=== PATIENT | female | born 1990 | race Caucasian/White ===

== ENCOUNTER → 2017-03-04 22:06 | Observation (INO) ==
--- NOTE | 2017-03-05 09:09 | Discharge Summary ---
Date of Encounter: 03/04/17 Time of Encounter: 21:58 - Discharge Diagnosis (1) 26 weeks gestation of Priority: Primary Status: Acute Comments: Patient admitted for observation for decreased movement. However, after being in labor and delivery patient felt multiple movements and FHR was appropriate for gestational age. Patient discharged home to follow up with PCP as scheduled. - Discharge Medications Home Medications: Daily Combo Pack 1 tab PO DAILY 03/04/17 [History] Sertraline [Zoloft] 1 tab PO DAILY 03/04/17 [History] Allergies/Adverse Reactions: Allergies No Known Allergies Allergy (Verified 03/04/17 21:09) Date of admission: 03/04/17 20:46 Discharging clinician: Rosita Bernstein Anticipated date of discharge: 03/04/17 - Patient Status Disposition: Home, Self-Care Condition: Good - Discharge Instructions Additional Instructions: LABOR AND DELIVERY DISCHARGE INSTRUCTIONS Signs and Symptoms to be Reported to your Doctor Immediately: * Sudden gush, continuous or intermittent lead of fluid from vagina (note the time of gush and color of fluid) * Onset of bright red vaginal bleeding with or without pain (if you had a vaginal exam during this visit you may notice some dark red spotting. This is normal.) * Lower abdominal cramping or backache that is premenstrual-like feeling. * More than 6 contractions in one hour. * Burning during urination, having to urinate more frequently or pain in your mid-back. * A change in the baby's activity. This could be an increase or decrease in activity. * Severe headache which does not go away with tylenol. * Sudden swelling in the face, hands, arms and/or legs. * Upper abdominal pain - sometimes associated with heartburn or nausea and is not relieved by Maalox, Mylanta or Tums. * Dizziness or blurred vision or visual disturbances (seeing stars/lights). * Kick Counts One hour after a meal, lay down on one side in a quiet place. Count the number of ashley the baby moves during an hour. If less than 6 movements, notify your physician. Diet: *Force fluids - 8-10 tall glasses of fluid per day. May include popsicles and jello. 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 FHR appropriate for gestational age. - VTE Reasons for not Prescribing Prophylaxis: Treatment not Indicated - Low risk for VTE
== END | disposition home or self-care (01) ==
LOC: 1NENULAB
PROVIDERS: ADMIT Obstetrics & Gynecology; ATTEND Obstetrics & Gynecology

== ENCOUNTER 2017-06-08 06:00 | Inpatient (IN) ==
[2017-06-08] MEDS ORDERED: Famotidine 20 MG/2 ML VIAL IVP PRN (07:26)
[2017-06-08] MEDS ORDERED: Naloxone 0.4 MG/ML INJ IVP PRN (07:26)
[2017-06-08] MEDS ORDERED: Ondansetron 4 MG/2 ML VIAL IVP PRN (07:26)
[2017-06-08] MEDS ORDERED: miSOPROStol 100 MCG TABLET PO STA (07:27)
--- NOTE | 2017-06-08 09:16 | OB/GYN History & Physical ---
Date of Encounter: 06/08/17 Time of Encounter: 09:10 Assessment and Plan (1) 39 weeks gestation of Current visit: Yes Status: Acute admit for IOL Cytotec 50 mcg PO (2) Obesity affecting in third trimester Current visit: Yes Status: Acute Induction of labor between 39-40 weeks gestation (3) Rh negative status during Current visit: Yes Status: Acute Rhogam evaluation following delivery Qualifiers: Trimester: third trimester Qualified Code(s): O09.893 - Supervision of other high risk pregnancies, third trimester History of Present Illness Chief complaint: Patient here for scheduled Induction of labor at 39w5d. HPI: Ms. Tenorio is a 26 year old female at 39w5d presents to labor and delivery for scheduled induction of labor. Patient reports +FM, denies LOF or VB. On 02/2017 patient had an ultrasound: anterior placenta, JASON 13.2, EFW 8#5oz 94% tile. was complicated by obesity. Blood type: O Negative, Rubella: Immune, Hep B: nonreactive, GBS: negative. Past Med Surg Social Fam HX - Past Medical History Source: patient Medical history: no medical history Psychiatric history: depression - Past Surgical History Surgical History: no surgical history - Social History Smoking Status: Never smoker Smokeless Tobacco Status: No Alcohol use: none Drug use: none Occupational status: employed Current living situation: Home - Independent Activity Level: Independent ambulation Recent Out of Country Travel Within the Last 8 Weeks: No Exposure or Possible Exposure to Illness During Travel: No - Family History Mother Family Member Ethnicity: Non- Living Status: Still Living Obstetrical History - Pregnancies : 3 Para: 0 Term: 0 : 0 Ab's: 2 Livin Medications and Allergies Daily Combo Pack 1 tab PO DAILY 03/04/17 [History] Sertraline [Zoloft] 1 tab PO DAILY 03/04/17 [History] 3 Allergy/AdvReac Type Severity Reaction Status Date / Time No Known Allergies Allergy Verified 03/04/17 21:09 Review of System OB - Constitutional Constitutional ROS IM: no chills, no fever(s), no headache(s) - Cardiovascular Cardiovascular: no chest pain, no edema, no lightheadedness, no palpitations, no rapid heart rate, no syncope - Respiratory Respiratory: no cough, no dyspnea - Gastrointestinal Gastrointestinal: no abdominal pain, no constipation, no cramping, no diarrhea, no heartburn, no nausea, no vomiting - Genitourinary Genitourinary: no abnormal vaginal bleeding, no dysuria, no flank pain, no urinary frequency, no urinary incontinence, no urinary urgency, no vaginal discharge, no vaginal odor, no vaginal pruritis Exam - Constitutional Constitutional: well developed, well nourished, no acute distress, obese - HEENT HEENT: Normocephaly, Mucus Membranes Moist - Neck Neck exam: full ROM, supple - Lungs Respiratory exam: CTAB - Cardiovascular Cardiovascular exam: RRR, +S1, +S2 - Abdomen Abdomen: Present: bowel sounds normal, gravid, non tender - Extremities Extremities exam: full ROM, normal capillary refill, normal inspection Deep Tendon Reflex Grade: 2+ Normal - Cervix Dilation: 2 Effacement: 80 Station: -1 - Uterus Uterus exam: Present: normal size, normal contour - Anus/Rectum Anus/Rectum: Present: normal perianal skin - Comments Comments: FHR 120 bpm moderate variability +15x15 accels no decels noted. Contractions irregular. CAt. 1 tracing. Results All other labs normal. - VTE Reasons for not Prescribing Prophylaxis: Treatment not Indicated - Low risk for VTE
[2017-06-08 09:56] LABS: Basophils % 0.3 %; Eosinophils # 0.2 K/mcL (0.0-0.6); Eosinophils % 2.5 %; Hematocrit 32.4 % (35.3-44.9); Hemoglobin 10.4 g/dL (11.5-15.4); Immature Granulocytes % 0.4 % (0-4); Immature Platelets 7.4 % (1.1-6.1); Lymphocytes # 1.6 K/mcL (0.6-4.6); Lymphocytes % 16.8 %; Mean Corpuscular HGB Conc 32.1 g/dL (31.6-35.5); Mean Corpuscular Hemoglobin 26.8 pg (28.0-33.3); Mean Corpuscular Volume 83.5 fL (83.0-100.0); Mean Platelet Volume 11.3 fL (9.4-12.4); Monocytes # 0.5 K/mcL (0.0-1.3); Monocytes % 5.6 %; Platelet Count 253 K/mcL (140-400); Red Blood Count 3.88 M/mcL (3.82-4.97); Red Cell Distribution Width 15.4 % (11.5-14.5); Segmented Neutrophils % 74.4 %
[2017-06-08 10:02] LABS: Amphetamine Screen,Urine Negative ng/mL (Cutoff=1000); Barbiturate Screen,Urine Negative ng/mL (Cutoff=200); Benzodiazepines Screen,Urine Negative ng/mL (Cutoff=200); Cannabinoid Screen,Urine Negative ng/mL (Cutoff = 50); Cocaine Screen,Urine Negative ng/mL (Cutoff= 300); Opiate Screen,Urine Negative ng/mL (Cutoff=300); Phencyclidine Screen,Urine Negative ng/mL (Cutoff=25)
--- NOTE | 2017-06-08 12:51 | OB Labor Progress Note ---
Date of Encounter: 06/08/17 Time of Encounter: 12:49 Labor Progress Note - Subjective Subjective: Patient resting in bed. Discussed POC with patient. Patient denies any questions or concerns. - Cervix Cervix: 4/90/-1 - Heart Tones Heart Tones: 135 bpm moderate variability +15x15 accels no decels noted. CAt. 1 tracing - [place]: 2-2.5 min apart - Interventions Interventions: SVE, AROM moderate amount of clear fluid noted. Patient tolerated well. - Plan Plan: Continue labor management. Patient may have nubain or epidural if desires.
--- NOTE | 2017-06-08 12:54 | Anesthesia Evaluation PreOp ---
Date of Encounter: 06/08/17 Time of Encounter: 12:52 - Past History Planned Operation: sarah Cardiac History: Denies any Significant Hx Pulmonary History: Denies Any Significant HX COMIC WRITER History: Denies Any Significant HX Other Medical History: GERD (occasionally), Other (depression) Anesthesia History: No Prior Anesthetic Complications : Yes (39 weeks, ) Alcohol Use: none Drug use: none Medications and Allergies Daily Combo Pack 1 tab PO DAILY 03/04/17 [History] Sertraline [Zoloft] 1 tab PO DAILY 03/04/17 [History] 3 Allergy/AdvReac Type Severity Reaction Status Date / Time No Known Allergies Allergy Verified 03/04/17 21:09 - Meds/Allergy Pre-op Review Medications Reviewed: Yes Allergies Reviewed: Yes Beta Blockers on Current Med List: No Anesthesia Results - Labs 06/08/17 09:35 Anesthesia Exam O2 Sat Height 1.57 m Weight 116.2 kg Vital Signs Temp Pulse Resp BP 97.9 F 91 18 112/72 06/08/17 09:24 06/08/17 09:24 06/08/17 09:24 06/08/17 09:24 Height: 62 Weight: 116 - HEENT Pupil (Motor): Pupils equal Mallampati: II Teeth: Normal Oral Opening: Greater than 3 - COMIC WRITER LOC: Oriented COMIC WRITER Motor: Normal RUE, Normal LUE, Normal RLE, Normal LLE, Normal Face COMIC WRITER Sensory: Normal: RUE, LUE, RLE, LLE, Face - Cardiac Rhythm: Regular Murmur: None JVD: No Carotid Bruit: No - Pulmonary Breath Sounds: bilateral Clear Respiratory Effort: Symmetrical Anesthesia Assess/Plan ASA Score: 2 Modified Ruchi Scale for Level of Consciousness: Cooperative, oriented, and tranquil Anesthetic Plan: Regional Autologous Blood: No Monitoring Plan: Standard Monitors
[2017-06-08] MEDS: *HR* Nalbuphine 20 MG/ML AMPUL IVP PRN ×2 (13:54→17:38)
--- NOTE | 2017-06-08 14:58 | OB Labor Progress Note ---
Date of Encounter: 06/08/17 Time of Encounter: 14:56 Labor Progress Note - Subjective Subjective: Patient resting in bed. Discussed POC with patient. Patient denies any questions or concerns. - Cervix Cervix: 5/90/-1 - Heart Tones Heart Tones: 120 bpm moderate amount of variability +15x15 accels no decels noted. Cat. 1 tracing - [place]: 2-4 min apart - Interventions Interventions: IUPC placed without difficulty. Patient tolerated well. - Plan Plan: Continue labor management. Patient may have epidural if desires. Will start pitocin if needed for labor augmentation.
[2017-06-08] MEDS ORDERED: Oxytocin 20 units/ LR 1000 mL 20 UNIT/1,000 ML BAG IVC SCH (15:00)
[2017-06-08] MEDS: Ringers Solution, Lactated 1,000 ML IVC SCH ×2 (17:21→20:46)
[2017-06-08] MEDS ORDERED: *HR* Ropivacaine/PF 0.2% 10 ML AMPUL ONE ×2 (17:58→23:21)
[2017-06-08] MEDS ORDERED: *HR* FentaNYL (PF) 100 MCG/2 ML VIAL ONE (17:58)
[2017-06-08] MEDS ORDERED: Epidural Premix (fent/bupiv) 110 ML EP ONE (17:59)
--- NOTE | 2017-06-08 18:24 | Anesthesia Procedures ---
Date of Encounter: 06/08/17 Time of Encounter: 18:01 Procedures: Anesthesia - Epidural/Spinal Patient ID/Chart reviewed: Yes Patient examined: Yes OB Eval: Contractions: Non-stressed pattern Consent Obtained: Yes Supplemental Oxygen: None/Room Air Site Prep: Aseptic Technique Patient position: upright Local Anesthetic: Lidocaine 1% Amount of Local Anesthetic used: 3 Touhy Needle Gauge: 18 Touhy Needle Depth (cm): 6 Catheter Depth at Skin (cm): 13 Test Dose (1.5% Lido + Epi): Volume given (mls): 3 Test Dose Result: Negative Loading Dose: Fentanyl (mcg): 100 Loading Dose: Other: 5cc 0.2% ropivicaine, 3cc nss Loading Dose Administered: Thru Touhy Needle Infusion Med: 0.125% Bupivacaine w/ 2 mcg/ml Fentanyl Infusion Rate (mls/hr): [address]: Tegaderm Interspace Used: L3-L4 Loss of Resistance (TEX): Yes Blood: No CSF: No Paresthesia: No
--- NOTE | 2017-06-08 20:41 | OB Labor Progress Note ---
Date of Encounter: 06/08/17 Time of Encounter: 20:38 Labor Progress Note - Subjective Subjective: Patient resting comfortable with epidural in place. Patient denies any questions or concerns. - Cervix Cervix: 6.5/95/0 - Heart Tones Heart Tones: 120 bpm moderate variability +15x15 accels no decels noted. - [place]: 4-5 min apart - Interventions Interventions: sve discussed POC with patient. Patient denies any questions or concerns. - Plan Plan: Continue labor management.
--- NOTE | 2017-06-08 22:57 | OB Labor Progress Note ---
Date of Encounter: 06/08/17 Time of Encounter: 22:54 Labor Progress Note - Subjective Subjective: Patient on left side. Patient reports feeling contractions on left side. 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 - Cervix Cervix: 8/100/0 - Heart Tones Heart Tones: 120 bpm moderate variability +15x15 accels early decelerations noted. - [place]: 3-4 min apart - Interventions Interventions: Patient reposition and SVE - Plan Plan: Continue labor management, Will notify anesthesia if patient does not receive relief from LIQUEFACTION PLANT OPERATOR.
[2017-06-09] MEDS ORDERED: Epidural Premix (fent/bupiv) 110 ML EP ONE (01:29)
--- NOTE | 2017-06-09 02:55 | OB/GYN Procedure Note ---
Delivery - Delivery Date: 06/09/17 Provider: Rosita Bernstein (Dr. Titus) Intrapartum events: none Delivery induction: misoprostol Delivery augmentation: rupture of membranes Delivery monitor: external FHT, external uterine, internal uterine Anesthesia: epidural Estimated Blood Loss: 400 - (s) Infant A Delivery Date: 06/09/17 Infant Delivery Time: 02:14 Presentation: vertex Position: MINA Route of delivery: Gender: Male Viability: Viable Pounds: 9 Ounces: 3 at 1 minute: 6 at 5 mins: 9 Shoulder Dystocia: encountered (Dr Titus called to LDR and delivered ) Shoulder Dystocia Maneuvers: Shan maneuver, suprapubic pressure Shoulder dystocia time elapsed: 40 Specimens collected: cord blood Placenta: spontaneous, uterine exploration Cord: 3 umbilical vessels - Repair Episiotomy: none Laceration Description: Perineal - 2nd Degree - Complications Delivery complications: none - Disposition Mom disposition: stable in LDR disposition: stable in LDR - Comments Comments: Called to LDR patient feeling pressure. Patient complete and +2 station. Patient effectively pushed with contractions. head delivered MINA position no nuchal cord noted. Shoulder dystocia encountered. Dr. Titus called to delivery room for assistance. Shan and suprapubic given per RN. Shoulder dystocia 40 seconds. Delivery of viable male per Dr. Titus. No meconium encountered. Infant placed on maternal abdomen. Cord was clamped and cut after pulsation ceased. Apgars 6 at 1 minute and 9 at 5 minutes. Cord blood collected. A second degree perineal laceration was noted and repaired with 3-0 vicryl. Patient tolerated well. Placenta delivered spontaneously and intact. EBL 400 Fundus firm at U/2. All counts correct. placed skin to skin. Both mother and stable in LDR for 2 hour recovery.
[2017-06-09] MEDS ORDERED: *HR* HYDROcodone/Acet 5/325 mg TABLET PO PRN (05:09)
[2017-06-09] MEDS ORDERED: Rho Immune Globulin 1,500 UNIT SYRINGE IM PRN (05:09)
[2017-06-09] MEDS ORDERED: Lanolin 7 G OINT...G. TP PRN (05:09)
[2017-06-09] MEDS ORDERED: Benzocaine/Menthol 56 GM AEROSOL SPRAY TP PRN (05:09)
[2017-06-09] MEDS ORDERED: Oxytocin 20 units/ LR 1000 mL 20 UNIT/1,000 ML BAG IVC SCH (05:09)
[2017-06-09] MEDS ORDERED: Acetaminophen 325 MG TABLET PO PRN (05:09)
[2017-06-09] MEDS: Ibuprofen 600 MG TABLET PO PRN ×2 (10:14→21:25)
[2017-06-09] MEDS: Prenatal Vit/FA 1 EACH TABLET PO SCH (10:14)
--- NOTE | 2017-06-10 07:43 | Discharge Summary ---
Date of Encounter: 06/10/17 Time of Encounter: 07:42 - Discharge Diagnosis (1) (normal spontaneous vaginal delivery) Priority: Primary Status: Acute Comments: Doing well without c/o. Will D/C home. - Discharge Medications Prescriptions: Breast Pump [BREAST PUMP] 1 each .ROUTE AD #1 each Home Medications: Daily Combo Pack 1 tab PO DAILY 03/04/17 [History] Sertraline [Zoloft] 1 tab PO DAILY 03/04/17 [History] Breast Pump [BREAST PUMP] 1 each .ROUTE AD #1 each 06/10/17 [Rx] Allergies/Adverse Reactions: 3 Allergy/AdvReac Type Severity Reaction Status Date / Time No Known Allergies Allergy Verified 03/04/17 21:09 Data Procedures and tests throughout hospitalization: Laboratory Tests 06/08/17 06/08/17 06/09/17 09:35 09:35 03:08 WBC 9.5 RBC 3.88 Hgb 10.4 L Hct 32.4 L MCV 83.5 MCH 26.8 L MCHC 32.1 RDW 15.4 H Plt Count 253 MPV 11.3 Immature Gran % 0.4 Seg Neutrophils % 74.4 Lymphocytes % 16.8 Monocytes % 5.6 Eosinophils % 2.5 Basophils % 0.3 Neutrophils # 7.0 Lymphocytes # 1.6 Monocytes # 0.5 Eosinophils # 0.2 Basophils # 0.0 Immature Plt Fraction 7.4 H Urine Opiates Screen Negative Ur Barbiturates Screen Negative Ur Phencyclidine Scrn Negative Ur Amphetamines Screen Negative U Benzodiazepines Scrn Negative Urine Cocaine Screen Negative U Marijuana (THC) Screen Negative Screen NEGATIVE Baby's Blood Type O RH POSITIVE Mother's Blood Type O RH NEGATIVE Rhogam Indicated YES Rhogam Req for Mother 1 Labs on day of discharge: Labs from last 24 hours 06/09/17 03:08 Screen NEGATIVE Baby's Blood Type O RH POSITIVE Mother's Blood Type O RH NEGATIVE Rhogam Indicated YES Rhogam Req for Mother 1 - Impressions Doing well without c/o. Appropriate lochia and cramping. Breast feeding going well. 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 Time Attestation: Total time spent providing and/or coordinating discharge services: Exam - Constitutional Vitals: Temp Pulse Resp BP Pulse Ox 98.9 F 82 20 119/65 97 06/09/17 15:56 06/09/17 15:56 06/09/17 15:56 06/09/17 15:56 06/09/17 15:56 General appearance IM: A&O X 3 - Respiratory Respiratory exam: Present: CTAB - Cardiovascular Cardiovascular exam IM: Present: RRR - GI/Abdominal GI/Abdominal exam IM: normal bowel sounds - Uterus Position: 2 Fingers Below Umbilicus - Extremities Exam Extremities exam IM: Present: full ROM - Neurological Exam Neurological exam: oriented X3 - VTE Reasons for not Prescribing Prophylaxis: Treatment not Indicated - Low risk for VTE
[2017-06-10 08:16] VITALS: BP 103/70
[2017-06-10] MEDS: Prenatal Vit/FA 1 EACH TABLET PO SCH (09:29)
[2017-06-10] MEDS: Ibuprofen 600 MG TABLET PO PRN (09:30)
== END 2017-06-10 17:05 | disposition home or self-care (01) | DRG 775 ==
LOC: 1NENULAB 06:10 → 1NENUOBS 06-09 04:51
PROVIDERS: ADMIT Advanced Practice Midwife; ATTEND Advanced Practice Midwife